=== PATIENT | male | born 1965 | race Caucasian/White ===

== ENCOUNTER 2017-01-08 11:00 | Emergency (ER) | payer OTHER, BC ==
[~2017-01-08] VITALS: Ht 185.4 cm; Wt 118.0 kg
[~2017-01-08 11:00] MED LIST: EZET10TA41 PO; GLIP1TAB85 PO; METF1000 PO
[2017-01-08 11:14] VITALS: TEMP 37.4; Ht 185.4 cm; Wt 118.0 kg
[2017-01-08] MEDS ORDERED: OXYCODONE/ACETAMINOPHEN 5-325 TAB PO STA (11:42)
[2017-01-08] MEDS ORDERED: KETOROLAC TROMETHAMINE 60 MG/2 ML VIAL IM STA (11:42)
[2017-01-08] MEDS ORDERED: LEVO25TA PO (11:48)
--- NOTE | 2017-01-08 12:36 | DIAGNOSTIC IMAGING REPORT ---
RIGHT FEMUR 2 VIEWS ROUTINE CLINICAL HISTORY: Right leg injury Right pain COMPARISON: None. DISCUSSION: Moderate degenerative change right hip as well as right knee. No acute bony abnormality of the femur. No evidence for acetabular protrusion. There is no evidence for soft tissue swelling. IMPRESSION: Mild to moderate degenerative changes of hip and knee. No acute bony abnormality of the femur Electronically signed by: Sebastián Solis M.D. 01/08/2017 12:34 PM Dictated Date/Time: 01/08/2017 12:33 PM
--- NOTE | 2017-01-08 12:53 | DIAGNOSTIC IMAGING REPORT ---
Ultrasound right thigh RIGHT EXTREMITY NONVASCULAR LIMITED CLINICAL HISTORY: Right posterior femur pain/swelling. ?Hematoma vs other Right pain. Edema. TECHNIQUE: Ultrasound COMPARISON STUDY: None FINDINGS: Small focus of altered echogenicity posterior right thigh measuring 1.9 x 1.5 cm. This may represent a focal soft tissue bruise versus hematoma. All remaining soft tissue structures are unremarkable. IMPRESSION: Small bruise versus small hematoma posterior right thigh measuring 1.9 x 1.5 cm Electronically signed by: Sebastián Solis M.D. 01/08/2017 12:52 PM Dictated Date/Time: 01/08/2017 12:50 PM
[2017-01-08 13:40] VITALS: BP 130/78; PULSE 80; O2SAT 96
[2017-01-08] MEDS ORDERED: OXYC1TAB3 PO (14:59)
--- NOTE | 2017-01-09 20:53 | EMERGENCY ROOM VISIT NOTE ---
History First contact with patient: 11:26 Chief Complaint: LEG PAIN,LEG INJURY Stated Complaint: RIGHT LEG/HAMSTRING PAIN-WORK RELATED INJURY History of Present Illness The patient is a 51 year old male who presents to the Emergency Room with complaints of right posterior leg pain for the past one to 2 hours. The patient was at work, and was walking through the hallway. He evidently ran into a piece of metal which struck him in the left side abdominal wall. The patient lost his balance, and states that his right leg went up into the air above his head. He states that when his right leg came down to the ground he had intense pain in his hamstrings. The patient did not fall to the ground and was able to ambulate with significant discomfort. He does not have a previous injury to this leg. No upper extremity pain or back pain. No discomfort in his knees or ankles. The patient is most comfortable seated in his wheelchair with his right leg straight. He has significant worsening of his pain when flexing at the knee. He has not taken anything for his discomfort. He rates his pain an 8/10. Review of Systems More than 10 systems were reviewed and otherwise negative with the exception of history of present illness. Past Medical/Surgical History History of diabetes and hypothyroidism Family History No pertinent family history Social History Smoking Status: Never Smoker Occupation Status: employed Current/Historical Medications Scheduled Ezetimibe/Simvastatin (Vytorin 10MG/40MG), 1 TAB PO QPM Glipizide Xl (Glucotrol Xl), 10 MG PO QAM Levothyroxine Sodium (Synthroid), 1 TAB PO DAILY Metformin Hcl (Glucophage), 1,000 MG PO BID Oxycodone Immediate Rel Tab (Roxicodone Ir), 1-2 TAB PO Q6 Allergies Coded Allergies: Honey Bee (Verified Allergy, Severe, ANAPHALAXIS, 01/08/17) Physical Exam Vital Signs Date Time Temp Pulse Resp B/P Pulse Ox O2 Delivery O2 Flow Rate FiO2 01/08/17 13:40 80 130/78 96 Room Air 01/08/17 11:14 37.4 87 18 160/96 94 Room Air Pain Rating (0-10): 5.0 Physical Exam VITALS: Vitals are noted on the nurse's note and reviewed by myself. Vital signs stable. GENERAL: Well-developed, well-nourished, white male who is in moderate discomfort secondary to his stated complaint. The patient is cooperative with exam. HEAD: Normocephalic atraumatic. NECK: Supple without nuchal rigidity. No lymphadenopathy. No thyromegaly. Cervical spine is nontender. HEART: Regular rate and rhythm without murmurs gallops or rubs. LUNGS: Clear to auscultation bilaterally without wheezes, rales or rhonchi. No retractions or accessory muscle use. MUSCULOSKELETAL: There is notable edema along the right posterior leg roughly in the distribution of the hamstrings. The patient is notably tender throughout this area. There is no tenderness of the low back, right hip, or right knee. Flexion of the right knee against resistance exacerbates tenderness. Strength is 2/5 to flexion and 5/5 to extension. NEURO: Patient was alert and oriented to person place and time. CN II through XII grossly intact. Deep tendon reflexes 2+ throughout. No focal neurological deficits Medical Decision & Procedures ER Provider Diagnostic Interpretation: RIGHT FEMUR 2 VIEWS ROUTINE CLINICAL HISTORY: Right leg injury Right pain COMPARISON: None. DISCUSSION: Moderate degenerative change right hip as well as right knee. No acute bony abnormality of the femur. No evidence for acetabular protrusion. There is no evidence for soft tissue swelling. IMPRESSION: Mild to moderate degenerative changes of hip and knee. No acute bony abnormality of the femur Ultrasound right thigh RIGHT EXTREMITY NONVASCULAR LIMITED CLINICAL HISTORY: Right posterior femur pain/swelling. ?Hematoma vs other Right pain. Edema. TECHNIQUE: Ultrasound COMPARISON STUDY: None FINDINGS: Small focus of altered echogenicity posterior right thigh measuring 1.9 x 1.5 cm. This may represent a focal soft tissue bruise versus hematoma. All remaining soft tissue structures are unremarkable. IMPRESSION: Small bruise versus small hematoma posterior right thigh measuring 1.9 x 1.5 cm Medications Administered Medications (Trade) Dose Ordered Sig/Joe Route Start Time Stop Time Status Last Admin Dose Admin Ketorolac Tromethamine (Toradol Inj) 60 mg NOW STAT IM 01/08/17 11:42 01/08/17 11:44 DC 01/08/17 11:53 60 MG Oxycodone/ Acetaminophen (Percocet 5-325mg Tab) 2 tab NOW STAT PO 01/08/17 11:42 01/08/17 11:44 DC 01/08/17 11:52 2 TAB ED Course Physical exam and history were performed. Nursing notes and EMR were reviewed. Patient appears to have suffered injury to his right posterior thigh at work about one hour ago. The patient is with significant swelling and tenderness over the posterior right thigh. He appears to have decreased strength to flexion. Neurovascularly he is intact and does not have a history of previous elbow injury. Because of the patient's discomfort I elected to give him 2 Percocet by mouth as well as 60 mg IM Toradol. X-ray and ultrasound were ordered. The patient's x-ray does not show an acute bony abnormality. His ultrasound appears to show a hematoma, which likely explains his swelling. Overall the patient did have improvement of his pain while here in the department. His discomfort was not completely taken away, but he was much more comfortable. I discussed options of care with the patient. I do have concern that he may have suffered injury to his hamstring because of the mechanism of his right leg going up above his head. The patient will need to follow with Workmen's Compensation orthopedics. He will be given a course of Percocet for pain control as well as crutches. The patient was invited back to the ER anytime with any new, worsening, or concerning symptoms. The chart was completed utilizing [employer] Speech Voice Recognition Software. Grammatical errors, random word insertions, pronoun errors, and incomplete sentences are an occasional consequence of this system due to software limitations, ambient noise, and hardware issues. Any formal questions or concerns about the content, text, or information contained within the body of this dictation should be directly addressed to the provider for clarification. . Medical Decision Differential diagnosis includes, but is not limited to: Sprain, strain, fracture , dislocation, subluxation, contusion, hematoma, compartment syndrome, ligamentous rupture, and others Impression Primary Impression: Injury of right leg Additional Impression: Hematoma of right lower extremity Departure Information Dispostion Home / Self-Care Condition GOOD Prescriptions Oxycodone Immediate Rel Tab (ROXICODONE IR) 5 Mg Tab 1-2 TAB PO Q6 for Pain, #24 TAB Prov: Alan Giles PA-C 01/08/17 Forms HOME CARE DOCUMENTATION FORM, IMPORTANT VISIT INFORMATION Patient Instructions My [facility] Additional Instructions You were seen and evaluated today on an emergency basis only. This is not a substitute for, or an effort to provide, complete comprehensive medical care. It is not possible to recognize and treat all injuries or illnesses in a single emergency department visit. For this reason it is recommended that you followup with Orthopedics as soon as possible for ongoing care and evaluation. This can be facilitated through workmen's compensation or occupational medicine. For convenience we have provided the information for [facility], Dr. Ferrera's office, as they may be able to help you as well. For baseline pain relief you may alternate ibuprofen and acetaminophen every 4 hours for pain control. Take 600 mg ibuprofen (Advil) and then 4 hours later take 1000 mg acetaminophen (Tylenol). Do not take more than 3000 mg acetaminophen in a single day. Oxycodone (OxyIR) 5mg: Take ONE or TWO pills every SIX hours for breakthrough pain. Avoid alcohol, operating machinery or dangerous equipment, working on ladders or roofs, DRIVING, or situations where being under the influence may be dangerous. It is recommended to use an [id number] stool softener such as Colace, 100mg twice daily while taking this medication to avoid constipation. Use your crutches to help with ambulation. Do not bear weight on your right leg. You may use toe touching to the ground for balance. You are welcome to return to the emergency department anytime with new, worsening, or concerning symptoms. Problem Qualifiers
== END 2017-01-08 15:15 | disposition home or self-care (01) ==
LOC: C.EDB 11:01 → C.EDD 15:15
DX: S80.11XA Contusion of right lower leg, initial encounter (principal); E03.9 Hypothyroidism, unspecified; W22.8XXA Striking against or struck by other objects, initial encounter; E11.9 Type 2 diabetes mellitus without complications; Y99.0 Civilian activity done for income or pay

== ENCOUNTER → 2017-05-02 | Outpatient (CLI) | payer BC ==
[~2017-05-02] MED LIST changes: +LEVO25TA PO; +OXYC1TAB3 PO
[2017-05-02 09:54] LABS: CALCIUM 8.8 mg/dl (8.5-10.1)
[2017-05-02 09:58] LABS: ALT/SGPT 29 U/L (12-78); AST/SGOT 10 U/L (15-37); BLOOD UREA NITROGEN 18 mg/dl (7-18); BUN/CREATININE RATIO 17.5 (10-20); CARBON DIOXIDE 24 mmol/L (21-32); CHLORIDE 105 mmol/L (98-107); CHOLESTEROL 162 mg/dl (0-200); GLUCOSE 237 mg/dl (70-99); POTASSIUM 4.3 mmol/L (3.5-5.1); SODIUM 139 mmol/L (136-145); TRIGLYCERIDES 405 mg/dl (0-150)
[2017-05-02 10:08] LABS: ALB/GLOB RATIO 1.3 (0.9-2); ALKALINE PHOSPHATASE 71 U/L (45-117); CHOLESTEROL/HDL RATIO 6.5; HDL CHOLESTEROL 25 mg/dl
[2017-05-02 10:22] LABS: RATIO 5.8 mcg/mg (0-30.0)
[2017-05-02 10:28] LABS: ESTIMATED AVERAGE GLUCOSE 189 mg/dl; HA1C FLAG Normal (Normal)
== END | disposition home or self-care (01) ==
LOC: C.LAB1850 07:10
PROVIDERS: ATTEND Internal Medicine
DX: E11.65 Type 2 diabetes mellitus with hyperglycemia (principal)